=== PATIENT | female | born 1995 | race American Indian/Alaskan Native ===

== ENCOUNTER 2020-06-08 03:26 | Emergency (ER) | payer OTHER, BC ==
[2020-06-08 03:46] VITALS: BP 138/93
[2020-06-08] MEDS ORDERED: DIPHtheria,PERTUSSIS(ACELL),TETANUS VACCINE/PF 0.5 ML VIAL IM ONE (04:49)
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
[2020-06-08] MEDS ORDERED: HYDROcodone/ACETAMINOPHEN 5-325 MG TAB PO ONE (06:44)
[2020-06-08] MEDS ORDERED: ONDANSETRON 4 MG ODT TAB PO ONE (06:44)
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
[2020-06-08] MEDS: ACETAMINOPHEN 325 MG TAB PO ONE (11:25)
[2020-06-08] MEDS: IBUPROFEN 600 MG TAB PO ONE (11:25)
[2020-06-08] MEDS: DIPHtheria,PERTUSSIS(ACELL),TETANUS VACCINE/PF 0.5 ML VIAL IM ONE (11:26)
== END 2020-06-08 11:27 | disposition home or self-care (01) ==
LOC: ED 03:26
DX: S01.91XA Laceration without foreign body of unspecified part of head, initial encounter (principal); S62.642A Nondisplaced fracture of proximal phalanx of right middle finger, initial encounter for closed fracture; Z79.899 Other long term (current) drug therapy; Z88.8 Allergy status to other drugs, medicaments and biological substances; Z91.013 Allergy to seafood; V49.49XA Driver injured in collision with other motor vehicles in traffic accident, initial encounter; Y93.89 Activity, other specified; Y92.488 Other paved roadways as the place of occurrence of the external cause; Y99.8 Other external cause status
CPT/HCPCS: 70450; 72125; 90471; 90715; Q0162